=== PATIENT | male | born 1985 | race African-American/Black ===

== ENCOUNTER 2021-07-29 08:05 | Emergency (ER) | payer BC ==
[2021-07-29] MEDS ORDERED: Ibuprofen 800 MG TAB ONE (09:03)
== END 2021-07-29 09:48 | disposition home or self-care (01) ==
LOC: MADERS 08:05
DX: S92.325A Nondisplaced fracture of second metatarsal bone, left foot, initial encounter for closed fracture (principal); F17.210 Nicotine dependence, cigarettes, uncomplicated; W20.8XXA Other cause of strike by thrown, projected or falling object, initial encounter